=== PATIENT | female | born 1940 | race Caucasian/White ===

== ENCOUNTER 2016-11-08 06:50 | Inpatient (IN) | payer MEDICARE, MEDICAID ==
[2016-11-08] MEDS ORDERED: IPRATROPIUM/ALBUTEROL 0.5-2.5 MG/3 ML AMPUL NEB ONE ×2 (07:36)
--- NOTE | 2016-11-08 07:37 | ER Document Report ---
ED General - General Chief Complaint: Breathing Difficulty Stated Complaint: DIFFICULTY BREATHING Mode of Arrival: Ambulatory Information source: Patient Notes: 76-year-old female history of COPD who is not on oxygen at home presents with complaints of shortness of breath over the past few days. Patient denies any fevers or chills Patient notes productive yellow cough TRAVEL OUTSIDE OF THE [place] IN LAST 30 DAYS: No - HPI Onset: Last week Onset/Duration: Persistent Quality of pain: Achy Severity: Mild Pain Level: 1 Associated symptoms: Body/muscle aches, Productive cough, Shortness of breath Exacerbated by: Denies Relieved by: Denies Similar symptoms previously: No Recently seen / treated by doctor: No - Related Data Allergies/Adverse Reactions: naproxen [From Naprosyn] Allergy (Verified 06/25/15 07:33) Past Medical History - Social History Smoking Status: Current Every Day Smoker Cigarette use (# per day): Yes Chew tobacco use (# tins/day): No Smoking Education Provided: Yes - Patient counselled regarding cessation for 4 minutes Frequency of alcohol use: None Drug Abuse: None Family History: Reviewed & Not Pertinent - Past Medical History Cardiac Medical History: Reports: Hx Coronary Artery Disease, Hx Heart Attack - X1, Hx Hypertension Pulmonary Medical History: Reports: Hx COPD - Flovent BID prescript due "lung tests" that doctor conducted, Hx Pneumonia - 12/2011 Denies: Hx Asthma, Hx Bronchitis, Hx Tuberculosis Neurological Medical History: Denies: Hx Cerebrovascular Accident, Hx Seizures Renal/ Medical History: Denies: Hx Peritoneal Dialysis Musculoskeltal Medical History: Reports Hx Arthritis Past Surgical History: Reports: Hx Cardiac Surgery - ablation, Hx Hysterectomy, Hx Tonsillectomy. Denies: Hx Pacemaker - Immunizations Hx Diphtheria, Pertussis, Tetanus Vaccination: No - unknown Hx Pneumococcal Vaccination: 02/11/12 Review of Systems - Review of Systems Notes: REVIEW OF SYSTEMS: CONSTITUTIONAL : Denies fever, chills, or sweats. Denies recent illness. EENT: Denies eye, ear, throat, or mouth pain or symptoms. Denies nasal or sinus congestion or discharge. Denies throat, tongue, or mouth swelling or difficulty swallowing. CARDIOVASCULAR: Denies chest pain. Denies palpitations or racing or irregular heart beat. Denies ankle edema. RESPIRATORY: Admits shortness of breath productive cough GASTROINTESTINAL: Denies abdominal pain or distention. Denies nausea, vomiting , or diarrhea. Denies blood in vomitus, stools, or per rectum. Denies black, tarry stools. Denies constipation. GENITOURINARY: Denies difficulty urinating, painful urination, burning, frequency, blood in urine, or discharge. FEMALE GENITOURINARY: Denies vaginal bleeding, heavy or abnormal periods, irregular periods. Denies vaginal discharge or odor. MUSCULOSKELETAL: Denies back or neck pain or stiffness. Denies joint pain or swelling. SKIN: Denies rash, lesions or sores. HEMATOLOGIC : Denies easy bruising or bleeding. LYMPHATIC: Denies swollen, enlarged glands. NEUROLOGICAL: Denies confusion or altered mental status. Denies passing out or loss of consciousness. Denies dizziness or lightheadedness. Denies headache. Denies weakness or paralysis or loss of use of either side. Denies problems with gait or speech. Denies sensory loss, numbness, or tingling. Denies seizures. PSYCHIATRIC: Denies anxiety or stress. Denies depression, suicidal ideation, or homicidal ideation. ALL OTHER SYSTEMS REVIEWED AND NEGATIVE. Dictation was performed using [employer] voice recognition software PHYSICAL EXAMINATION: GENERAL: Well-appearing, well-nourished and in no acute distress. HEAD: Atraumatic, normocephalic. EYES: Pupils equal round and reactive to light, extraocular movements intact, conjunctiva are normal. ENT: Nares patent, oropharynx clear without exudates. Moist mucous membranes. NECK: Normal range of motion, supple without lymphadenopathy LUNGS: Coarse wheezing all throughout, currently on 4 L nasal cannula satting 92 % HEART: Regular rate and rhythm without murmurs ABDOMEN: Soft, nontender, nondistended abdomen. No guarding, no rebound. No masses appreciated. Female : deferred Musculoskeletal: Normal range of motion, no pitting or edema. No cyanosis. NEUROLOGICAL: Cranial nerves grossly intact. Normal speech, normal gait. Normal sensory, motor exams PSYCH: Normal mood, normal affect. SKIN: Warm, Dry, normal turgor, no rashes or lesions noted. Physical Exam - Vital signs Vitals: Pulse Ox 94 11/08/16 07:09 Course - Re-evaluation Re-evalutation: 11/08/16 07:36 Patient is not on oxygen at home, currently is on 4 L satting 92% at rest, she is already received 3 duo nebs and 125 Solu-Medrol by EMS. Further duo neb has been ordered I will ambulate her afterwards but I expect admission 11/08/16 08:15 Chest x-ray is consistent with pneumonia, patient will be started on antibiotics sepsis laboratory ordered 11/08/16 09:49 Patient ambulated desat to 88%, given that she meet sepsis criteria is hypoxic I will admit her to hospital service for further evaluation and care - Vital Signs Vital signs: Temp Pulse Resp BP Pulse Ox 24 H 107/55 L 96 11/08/16 08:56 11/08/16 08:56 11/08/16 08:56 - Laboratory Result Diagrams: 11/08/16 07:51 11/08/16 07:51 Laboratory results interpreted by me: 11/08/16 11/08/16 11/08/16 07:51 07:51 08:32 WBC 15.6 H Seg Neutrophils % 86.1 H Lymphocytes % 9.7 L Absolute Neutrophils 13.5 H VBG pH 7.43 H Glucose 123 H - Diagnostic Test Radiology reviewed: Image reviewed, Reports reviewed Critical Care Note - Critical Care Note Total time excluding time spent on procedures (mins): 37 Comments: minutes of critical care time spent in direct contact evaluating and reevaluating the patient, treating symptoms, reviewing labs and studies and speaking with family and consultants excluding any procedures Discharge - Discharge Clinical Impression: Pneumonia Qualifiers: Pneumonia type: due to unspecified organism Laterality: left Lung location: lower lobe of lung Qualified Code(s): J18.1 - Lobar pneumonia, unspecified organism Sepsis Qualifiers: Sepsis type: sepsis due to unspecified organism Qualified Code(s): A41.9 - Sepsis, unspecified organism Condition: Stable Disposition: ADMITTED INPATIENT Admitting Provider: Hospitalist Unit Admitted: Telemetry
[2016-11-08 08:05] LABS: ABSOLUTE LYMPHOCYTES (AUTO) 1.5 10^3/uL (0.5-4.7); ABSOLUTE MONOCYTES (AUTO) 0.6 10^3/uL (0.1-1.4); ABSOLUTE NEUT (AUTO) 13.5 10^3/uL (1.7-8.2); BASOPHILS % (AUTO) 0.2 % (0-2); EOSINOPHILS % (AUTO) 0.1 % (0-6); LYMPHOCYTES % (AUTO) 9.7 % (13-45); MEAN CORPUSCULAR HEMOGLOBIN 32.2 pg (27.0-33.4); MEAN CORPUSCULAR HGB CONC 34.8 g/dL (32.0-36.0); MEAN CORPUSCULAR VOLUME 93 fl (80-97); MONOCYTES % (AUTO) 3.9 % (3-13); RED BLOOD COUNT 4.65 10^6/uL (3.72-5.28); RED CELL DISTRIBUTION WIDTH 13.5 % (11.5-14.0); SEGMENTED NEUTROPHILS % (AUTO) 86.1 % (42-78); WHITE BLOOD COUNT 15.6 10^3/uL (4.0-10.5)
[2016-11-08] MEDS ORDERED: LEVOFLOXACIN 750 MG/D5W RTU 150 ML IV ONE (08:06)
--- NOTE | 2016-11-08 08:24 | EKG REPORT ---
SEVERITY:- ABNORMAL ECG - SINUS RHYTHM ATRIAL PREMATURE COMPLEX LEFT ANTERIOR FASCICULAR BLOCK LVH WITH SECONDARY REPOLARIZATION ABNORMALITY ANTERIOR INFARCT, AGE INDETERMINATE BORDERLINE PROLONGED QT INTERVAL : Confirmed by: Isacc Fishman 08-Nov-2016 08:23:33
[2016-11-08 08:27] LABS: ALANINE AMINOTRANSFERASE 26 U/L (9-52); ALKALINE PHOSPHATASE 120 U/L (38-126); ANION GAP 12 (5-19); ASPARTATE AMINO TRANSFERASE 18 U/L (14-36); BILIRUBIN,TOTAL 0.7 mg/dL (0.2-1.3); BLOOD UREA NITROGEN 13 mg/dL (7-20); CALCIUM 9.9 mg/dL (8.4-10.2); CARBON DIOXIDE 24 mmol/L (22-30); CHLORIDE 105 mmol/L (98-107); CREATINE KINASE 39 U/L (30-135); CREATININE RESULT 0.68 mg/dL (0.52-1.25); GLUCOSE 123 mg/dL (75-110); SODIUM 140.5 mmol/L (137-145); TOTAL PROTEIN 7.2 g/dL (6.3-8.2)
[2016-11-08 08:41] LABS: CREATINE KINASE MB 0.53 ng/mL (<4.55)
[2016-11-08 08:43] LABS: TROPONIN I < 0.012 ng/mL
[2016-11-08 08:45] LABS: VENOUS BLOOD BASE EXCESS 0.1 mmol/L; VENOUS BLOOD HCO3 24.1 mmol/L (20-32); VENOUS BLOOD PCO2 37.1 mmHg (35-63); VENOUS BLOOD PH 7.43 (7.30-7.42)
[2016-11-08 12:09] LABS: APPEARANCE,URINE CLOUDY; BILIRUBIN,URINE NEGATIVE (NEGATIVE); CALCIUM OXALATE CRYSTALS,URINE MANY /HPF; GLUCOSE, URINE NEGATIVE (NEGATIVE); KETONES,URINE NEGATIVE (NEGATIVE); LEUKOCYTE ESTERASE,URINE TRACE (NEGATIVE); NITRITE,URINE NEGATIVE (NEGATIVE); PROTEIN,URINE NEGATIVE (NEGATIVE); URINE SPECIFIC GRAVITY 1.016; UROBILINOGEN,URINE NEGATIVE mg/dL (<2.0)
[2016-11-08] MEDS ORDERED: ACETAMINOPHEN 325 MG TABLET PO PRN (12:43)
[2016-11-08] MEDS ORDERED: NORMAL SALINE 1000 ML 1,000 ML IV PRN (12:43)
[2016-11-08] MEDS ORDERED: ALBUTEROL SULFATE 0.083% NEB 2.5 MG/3 ML AMPUL NEB PRN (12:43)
--- NOTE | 2016-11-08 13:00 | PDOC H&P ---
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 Grand child is sick with an upper respiratory tract infection and possibly pneumonia recently. 2 days ago the patient started to develop cough with associated wheezing and eventual shortness of breath. There is associated mild pleurisy. There is no nausea or vomiting. Feels chilly at times but no definite fever. Feels sweaty at times as well. No sore throat nor sinus congestion. No PND or orthopnea nor increasing edema on the lower extremity. The patient went to the emergency room. Patient was given bronchodilators and a chest x-ray revealed left lower lobe infiltrate patient was then referred for admission. Past Medical History Past Medical History: Medication reconciliation pending verification from the patient's pharmacist. Cardiac Medical History: Reports: Coronary Artery Disease, Myocardial Infarction - X1, Hypertension, Other - WPW Pulmonary Medical History: Reports: Chronic Obstructive Pulmonary Disease (COPD ) - Flovent BID prescript due "lung tests" that doctor conducted, Pneumonia - 2011 Denies: Asthma, Bronchitis, Tuberculosis Neurological Medical History: Denies: Seizures Musculoskeltal Medical History: Reports: Arthritis Hematology: Denies: Anemia Past Surgical History Past Surgical History: Reports: Hysterectomy, Tonsillectomy, Other - Electrophysiologic studies with Ablation, excision of skin cancer Denies: Pacemaker Social History Information Source: Patient Smoking Status: Current Every Day Smoker Frequency of Alcohol Use: None Hx Recreational Drug Use: No Drugs: None Hx Prescription Drug Abuse: No Family History Family History: Malignancy - Lymphoma, Other - Heart disease Parental Family History Reviewed: Yes Children Family History Reviewed: Yes Sibling(s) Family History Reviewed.: Yes Medication/Allergy Allergies/Adverse Reactions: naproxen [From Naprosyn] Allergy (Verified 06/25/15 07:33) Review of Systems Constitutional: PRESENT: chills. ABSENT: fever(s), headache(s), weakness, weight gain, weight loss Eyes: ABSENT: visual disturbances Ears: ABSENT: hearing changes Nose, Mouth, and Throat: ABSENT: headache(s), mouth pain, sore throat Cardiovascular: PRESENT: chest pain - Pleuritic, dyspnea on exertion. ABSENT: edema, orthropnea, palpitations Respiratory: PRESENT: cough, dyspnea. ABSENT: hemoptysis, sputum Gastrointestinal: ABSENT: abdominal pain, bloating, constipation, diarrhea, hematemesis, hematochezia, melena, nausea, vomiting Genitourinary: ABSENT: difficulty urinating, dysuria, hematuria Musculoskeletal: ABSENT: joint swelling Integumentary: ABSENT: pruritus, rash, wounds Neurological: ABSENT: abnormal gait, abnormal speech, confusion, dizziness, focal weakness, syncope Psychiatric: ABSENT: anxiety, depression, homidical ideation, suicidal ideation Endocrine: ABSENT: cold intolerance, heat intolerance, polydipsia, polyuria Hematologic/Lymphatic: ABSENT: easy bleeding, easy bruising Physical Exam Vital Signs: Temp Pulse Resp BP Pulse Ox 98.3 F 24 H 113/60 94 11/08/16 12:06 11/08/16 11:01 11/08/16 11:00 11/08/16 11:01 General appearance: PRESENT: no acute distress, cooperative, well-developed, well-nourished Head exam: PRESENT: atraumatic, normocephalic Eye exam: PRESENT: conjunctiva pink, EOMI, PERRLA. ABSENT: scleral icterus Ear exam: PRESENT: normal external ear exam. ABSENT: drainage Mouth exam: PRESENT: moist, neck supple, tongue midline Neck exam: ABSENT: carotid bruit, JVD, lymphadenopathy, thyromegaly Respiratory exam: PRESENT: rhonchi - Occasional bilateral, unlabored, wheezes - Mild posteriorly bilateral. ABSENT: rales, retraction Cardiovascular exam: PRESENT: RRR. ABSENT: diastolic murmur, rubs, systolic murmur Pulses: PRESENT: normal dorsalis pedis pul Vascular exam: PRESENT: normal capillary refill GI/Abdominal exam: PRESENT: normal bowel sounds, soft. ABSENT: distended, guarding, mass, organolmegaly, rebound, tenderness Rectal exam: PRESENT: deferred Extremities exam: PRESENT: full ROM. ABSENT: calf tenderness, clubbing, pedal edema Neurological exam: PRESENT: alert, awake, oriented to person, oriented to place , oriented to time, oriented to situation Psychiatric exam: PRESENT: appropriate affect, normal mood. ABSENT: homicidal ideation, suicidal ideation Skin exam: PRESENT: dry, intact, warm. ABSENT: cyanosis, rash Results Laboratory Results: 11/08/16 11:30 Urine Color YELLOW Urine Appearance CLOUDY Urine pH 5.0 Ur Specific [place] 1.016 Urine Protein NEGATIVE Urine Glucose (UA) NEGATIVE Urine Ketones NEGATIVE Urine Blood NEGATIVE Urine Nitrite NEGATIVE Ur Leukocyte Esterase TRACE H Urine WBC (Auto) 2 Urine RBC (Auto) 1 Impressions: Chest X-Ray 11/08/16 07:09 IMPRESSION: Atelectasis or early pneumonia left lower lobe. Assessment & Plan - Diagnosis (1) Pneumonia Qualifiers: Pneumonia type: due to unspecified organism Laterality: left Lung location: lower lobe of lung Qualified Code(s): J18.1 - Lobar pneumonia, unspecified organism Is this a current diagnosis for this admission?: Yes (2) COPD exacerbation Is this a current diagnosis for this admission?: Yes (3) Hyperglycemia Is this a current diagnosis for this admission?: Yes (4) Essential hypertension Is this a current diagnosis for this admission?: Yes (5) Coronary artery disease Qualifiers: Coronary Disease-Associated Artery/Lesion type: [place] artery [place] vs. transplanted heart: [place] heart Associated angina: without angina Qualified Code(s): I25.10 - Atherosclerotic heart disease of [place] coronary artery without angina pectoris Is this a current diagnosis for this admission?: Yes (6) Osteoarthritis Qualifiers: Osteoarthritis location: unspecified site Osteoarthritis type: unspecified Qualified Code(s): M19.90 - Unspecified osteoarthritis, unspecified site Is this a current diagnosis for this admission?: Yes (7) History of Mjhhc-Coomdwwme-Lmvqp (WPW) syndrome Is this a current diagnosis for this admission?: Yes - Time Time Spent: 50 to 70 Minutes Anticipated discharge: Home with Homehealth Within: within 72 hours - Plan Summary Plan Summary: The patient will be admitted to telemetry. We will follow the pneumonia pathway. I will begin the patient on intravenous Levaquin. We will culture the sputum and blood. Supplemental oxygen will be given. DVT prophylaxis will be placed. Mucolytic as well as antipyretics as needed will be placed. I will obtain a hemoglobin A1c. I will begin intravenous steroids and around-the- clock nebulizers. Further testing depends on the initial evaluation and response to treatment as outlined above.
[2016-11-08] MEDS ORDERED: METHYLPREDNISOLONE INJ 125 MG/2 ML SDV IV ONE (13:15)
[2016-11-08] MEDS: IPRATROPIUM/ALBUTEROL 0.5-2.5 MG/3 ML AMPUL NEB SCH ×2 (16:06→20:07)
[2016-11-08] MEDS: METHYLPREDNISOLONE INJ 125 MG/2 ML SDV IV SCH ×2 (18:55→23:14)
[2016-11-08] MEDS: GUAIFENESIN 600 MG TABLET.SA PO SCH (23:14)
[2016-11-09] MEDS: IPRATROPIUM/ALBUTEROL 0.5-2.5 MG/3 ML AMPUL NEB SCH ×4 (00:07→11:56)
[2016-11-09] MEDS: METHYLPREDNISOLONE INJ 125 MG/2 ML SDV IV SCH (05:01)
[2016-11-09 05:50] LABS: HEMATOCRIT 42.2 % (36.0-47.0); HEMOGLOBIN 14.6 g/dL (12.0-15.5); HGB HCT DIFFERENCE 1.6; MEAN CORPUSCULAR HEMOGLOBIN 32.3 pg (27.0-33.4); MEAN CORPUSCULAR HGB CONC 34.7 g/dL (32.0-36.0); MEAN CORPUSCULAR VOLUME 93 fl (80-97); RED BLOOD COUNT 4.53 10^6/uL (3.72-5.28); RED CELL DISTRIBUTION WIDTH 13.5 % (11.5-14.0); WHITE BLOOD COUNT 23.6 10^3/uL (4.0-10.5)
[2016-11-09] MEDS ORDERED: LANSOPRAZOLE 30 MG TAB.RAP.DR PO SCH (06:00)
[2016-11-09 06:09] LABS: ANION GAP 11 (5-19); BLOOD UREA NITROGEN 13 mg/dL (7-20); CALCIUM 10.3 mg/dL (8.4-10.2); CARBON DIOXIDE 24 mmol/L (22-30); CHLORIDE 107 mmol/L (98-107); GLUCOSE 136 mg/dL (75-110); SODIUM 141.5 mmol/L (137-145)
[2016-11-09 06:35] LABS: BAND NEUTROPHILS % (MANUAL) 1 % (3-5); BASOPHILS % (MANUAL) 0 % (0-2); EOSINOPHILS % (MANUAL) 0 % (0-6); LYMPHOCYTES % (MANUAL) 8 % (13-45); TOTAL CELLS COUNTED 100
[2016-11-09 06:36] LABS: OVALOCYTES SLIGHT; POIKILOCYTOSIS SLIGHT; TOXIC GRANULATION 1+
[2016-11-09] MEDS ORDERED: ASPIRIN 81 MG TABLET, ENT COATED PO SCH ×2 (08:00)
[2016-11-09] MEDS ORDERED: DILTIAZEM HCL 180 MG CAPSULE.CR PO SCH ×2 (08:00)
[2016-11-09] MEDS ORDERED: ISOSORBIDE MONONITRATE 30 MG TAB.ER.24H PO SCH ×2 (08:00)
[2016-11-09] MEDS ORDERED: UMECLIDINIUM BROMIDE PO SCH ×2 (08:00)
[2016-11-09] MEDS ORDERED: B12 PO SCH ×2 (08:00)
[2016-11-09] MEDS ORDERED: B6 PO SCH ×2 (08:00)
[2016-11-09] MEDS ORDERED: LEVOMEFOLATE CALCIUM PO SCH ×2 (08:00)
[2016-11-09] MEDS ORDERED: ENOXAPARIN SODIUM INJ 40 MG/0.4 ML DISP.SYRIN SUBCUT SCH (08:00)
[2016-11-09 09:39] VITALS: BP 120/41
[2016-11-09] MEDS: GUAIFENESIN 600 MG TABLET.SA PO SCH (09:49)
[2016-11-09] MEDS ORDERED: COLESEVELAM HCL 625 MG TABLET PO SCH (10:00)
[2016-11-09] MEDS ORDERED: LEVOFLOXACIN 750 MG/D5W RTU 150 ML IV SCH (10:00)
[2016-11-09] MEDS ORDERED: NORMAL SALINE 1000 ML 1,000 ML IV PRN (11:40)
--- NOTE | 2016-11-09 12:22 | PDOC DISCHARGE SUMMARY ---
General - Admit/Disc Date/PCP Admission Date/Primary Care Provider: 11/08/16 12:44 YANET HENDRIX Discharge Date: 11/09/16 - Discharge Diagnosis (1) Pneumonia Is this a current diagnosis for this admission?: Yes (2) COPD exacerbation Is this a current diagnosis for this admission?: Yes (3) Hyperglycemia Is this a current diagnosis for this admission?: Yes (4) Essential hypertension Is this a current diagnosis for this admission?: Yes (5) Coronary artery disease Is this a current diagnosis for this admission?: Yes (6) Osteoarthritis Is this a current diagnosis for this admission?: Yes (7) History of Ojvkb-Guwuzizjk-Smmrn (WPW) syndrome Is this a current diagnosis for this admission?: Yes - Additional Information Home Medications: Aspirin [Adult Low Dose Aspirin EC] 1 tab PO QAM 11/08/16 B12/Levomefolate Calcium/B-6 [Foltx Tablet] 1 tab PO QAM 11/08/16 Budesonide/Formoterol Fumarate [Symbicort HFA 160-4.5 mcg Inhaler 6 gm] 2 inh PO BID 11/08/16 Colesevelam HCl [Welchol 625 mg Tablet] 1 tab PO BID 11/08/16 Diltiazem HCl [Cardizem Cd 180 mg Capsule] 1 cap PO QAM 11/08/16 Isosorbide Mononitrate [Imdur 30 mg Tablet.er] 0.5 tab PO QAM 11/08/16 Multivits W-Min/Ferrous Gluc [Centrum Multivit-Mineral Liq] 1 tab PO QAM Umeclidinium [place] [Incruse Ellipta] 1 inh PO QAM 11/08/16 Vitamin D3/Vitamin K2 [D3 + K2 Dots 1,000 Units Tab] 1 tab PO QAM 11/08/16 Albuterol Sulfate [Ventolin 0.083% Neb 2.5 mg/3 mL Ampul] 2.5 mg NEB Q4H PRN # 80 vial.neb 11/09/16 Ipratropium/Albuterol Sulfate [Duoneb 3 ml Ampul] 3 ml NEB RTQ4 #120 vial.neb Levofloxacin [Levaquin 750 mg Tablet] 750 mg PO DAILY #10 tab 11/09/16 Prednisone [Sterapred Ds] 1 pkg PO ASDIR PRN 12 Days 11/09/16 Additional Information: Return to ER if symptoms got worse. Patient advised to see primary care physician as soon as possible. Patient advised for bedrest for at least 5 days. Patient encouraged to increase oral fluids. 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 Grand child is sick with an upper respiratory tract infection and possibly pneumonia recently. 2 days ago the patient started to develop cough with associated wheezing and eventual shortness of breath. There is associated mild pleurisy. There is no nausea or vomiting. Feels chilly at times but no definite fever. Feels sweaty at times as well. No sore throat nor sinus congestion. No PND or orthopnea nor increasing edema on the lower extremity. The patient went to the emergency room. Patient was given bronchodilators and a chest x-ray revealed left lower lobe infiltrate patient was then referred for admission. Hospital Course Hospital Course: The patient was admitted to telemetry. Intravenous antibiotic, steroids, and intravenous hydration was given. The patient significantly improved the following day. She has not worn her oxygen while in the [facility]. However the patient does not want to stay in the hospital any longer and wants to continue treatment at home on an outpatient basis. Despite encouragement to stay for degenerative day or 2, the patient is decided to leave the hospital. She signed out AGAINST MEDICAL ADVICE. She was advised to see primary care physician in one to 2 days, rest and recover at home, and return to the emergency room if symptoms get worse. Physical Exam Vital Signs: Temp Pulse Resp BP Pulse Ox 97.9 F 98 24 H 120/41 L 92 11/09/16 09:10 11/09/16 09:10 11/09/16 09:10 11/09/16 09:10 11/09/16 09:10 Intake & Output 11/08/16 11/09/16 11/10/16 06:59 06:59 06:59 Intake Total 1713 Output Total 4 Balance 1709 Weight 72.6 kg General appearance: PRESENT: no acute distress, cooperative, other - Patient speaks in complete sentences with minimal interruption Head exam: PRESENT: normocephalic Eye exam: PRESENT: EOMI Mouth exam: PRESENT: moist, neck supple Neck exam: ABSENT: JVD Respiratory exam: PRESENT: wheezes - Minimal and mild, other - Air entry is fair. Cardiovascular exam: PRESENT: RRR. ABSENT: gallop GI/Abdominal exam: PRESENT: soft. ABSENT: distended, tenderness Extremities exam: ABSENT: pedal edema Neurological exam: PRESENT: alert, awake, oriented to person, oriented to place , oriented to time, oriented to situation Skin exam: PRESENT: dry, warm. ABSENT: cyanosis Results Laboratory Results: 11/09/16 05:01 11/09/16 05:01 11/09/16 11/09/16 05:01 05:01 WBC 23.6 H RBC 4.53 Hgb 14.6 Hct 42.2 MCV 93 MCH 32.3 MCHC 34.7 RDW 13.5 Plt Count 412 Seg Neutrophils % Not Reportable Lymphocytes % Not Reportable Monocytes % Not Reportable Eosinophils % Not Reportable Basophils % Not Reportable Absolute Neutrophils Not Reportable Absolute Lymphocytes Not Reportable Absolute Monocytes Not Reportable Absolute Eosinophils Not Reportable Absolute Basophils Not Reportable Sodium 141.5 Potassium 4.0 Chloride 107 Carbon Dioxide 24 Anion Gap 11 BUN 13 Creatinine 0.60 Est GFR ( Amer) > 60 Est GFR (Non-Af Amer) > 60 Glucose 136 H Calcium 10.3 H Impressions: Chest X-Ray 11/08/16 07:09 IMPRESSION: Atelectasis or early pneumonia left lower lobe. Qualifiers PATEINT BEING DISCHARGED WITH ANY OF THE FOLLOWING DIAGNOSIS?: No Plan Discharge Plan: Patient left AGAINST MEDICAL ADVICE. Advised to see primary care physician in one to 2 days. Patient given prescriptions for Levaquin, DuoNeb nebulizer, albuterol nebulizer, steroid pack, nebulizer machine.
[2016-11-09] MEDS ORDERED: PREDNISONE 20 MG TABLET PO ONE (12:30)
== END 2016-11-09 12:40 | disposition left against medical advice (07) | DRG 194 ==
LOC: ER 06:50 → UNDOADMIN 10:13 → EH 10:13 → 4N 13:09 → EH 13:09
PROVIDERS: ADMIT Family Medicine; ATTEND Family Medicine
DX: J18.1 Lobar pneumonia, unspecified organism (principal); J44.1 Chronic obstructive pulmonary disease with (acute) exacerbation; I25.10 Atherosclerotic heart disease of native coronary artery without angina pectoris; I10 Essential (primary) hypertension; R73.9 Hyperglycemia, unspecified; M19.90 Unspecified osteoarthritis, unspecified site; I45.6 Pre-excitation syndrome; F17.210 Nicotine dependence, cigarettes, uncomplicated; I25.2 Old myocardial infarction; Z71.6 Tobacco abuse counseling
CPT/HCPCS: 36415; 71010; 80048; 80053; 81001; 82550; 82553; 82803; 83036; 83605; 83880; 84484; 85025; 87040; 87070; 87205; 93005; 93010; 94640; 96365; 99291; J1650; J1956; J2930; J3490; J7030; J7512; J7620

== ENCOUNTER → 2016-12-09 | Outpatient (CLI) | payer MEDICARE, MEDICAID | LOC: OD 09:13 | PROVIDERS: ATTEND Nurse Practitioner | DX: J18.9 Pneumonia, unspecified organism (principal) | CPT/HCPCS: 71020 ==

== ENCOUNTER → 2017-06-02 | Outpatient (CLI) | payer MEDICARE, MEDICAID ==
--- NOTE | 2017-06-02 10:19 | RADIOLOGY REPORT (SQ) ---
EXAM DESCRIPTION: U/S RETROPERITON (RENAL/AORTA) COMPLETED DATE/TIME: 06/02/2017 9:14 am REASON FOR STUDY: HEMATURIA R31.9 HEMATURIA, UNSPECIFIED COMPARISON: None available TECHNIQUE: Dynamic and static grayscale images acquired of the kidneys and bladder and recorded on P ACS. Additional selected color Doppler and spectral images recorded. LIMITATIONS: None. FINDINGS: RIGHT KIDNEY: 9 cm in length. Normal echogenicity. No solid or suspicious masses. No calc ifications. There is mild right hydronephrosis with renal pelvis, calyx, and proximal ureteral dilatation. This is seen on both the prevoid and postvoid images LEFT KIDNEY: 9.6 cm in length. Normal echogenicity. No solid or suspicious masses. No hydronephrosis . No calcifications. BLADDER: No masses. Bilateral ureteral jets are identified OTHER FINDINGS: No other significant finding. IMPRESSION: Mild right hydronephrosis and hydroureter. Question right ureteral stricture or stone. No left hydronephrosis. No right or left intrarenal stones identified at ultrasound TECHNICAL DOCUMENTATION: JOB ID: [id number] All Rights Reserved
== END ==
LOC: RAD 08:32
PROVIDERS: ATTEND Nurse Practitioner
DX: R31.9 Hematuria, unspecified (principal); N13.30 Unspecified hydronephrosis
CPT/HCPCS: 76770

== ENCOUNTER 2018-05-26 21:25 | Inpatient (IN) | payer MEDICARE, MEDICAID ==
[2018-05-26 22:04] LABS: ABSOLUTE EOSINOPHILS # (AUTO) 0.1 10^3/uL (0.0-0.6); ABSOLUTE LYMPHOCYTES (AUTO) 1.4 10^3/uL (0.5-4.7); ABSOLUTE MONOCYTES (AUTO) 1.7 10^3/uL (0.1-1.4); ABSOLUTE NEUT (AUTO) 9.5 10^3/uL (1.7-8.2); BASOPHILS % (AUTO) 0.2 % (0-2); EOSINOPHILS % (AUTO) 0.4 % (0-6); HEMATOCRIT 38.7 % (36.0-47.0); HEMOGLOBIN 13.5 g/dL (12.0-15.5); LYMPHOCYTES % (AUTO) 11.2 % (13-45); MEAN CORPUSCULAR HEMOGLOBIN 32.9 pg (27.0-33.4); MEAN CORPUSCULAR HGB CONC 34.9 g/dL (32.0-36.0); MEAN CORPUSCULAR VOLUME 94 fl (80-97); MONOCYTES % (AUTO) 13.6 % (3-13); PLATELET COUNT 582 10^3/uL (150-450); RED BLOOD COUNT 4.11 10^6/uL (3.72-5.28); RED CELL DISTRIBUTION WIDTH 13.7 % (11.5-14.0); SEGMENTED NEUTROPHILS % (AUTO) 74.6 % (42-78); TOTAL CELLS COUNTED % (AUTO) 100 %; WHITE BLOOD COUNT 12.7 10^3/uL (4.0-10.5)
[2018-05-26 22:22] LABS: ALANINE AMINOTRANSFERASE 34 U/L (9-52); ALBUMIN 3.7 g/dL (3.5-5.0); ALKALINE PHOSPHATASE 83 U/L (38-126); ANION GAP 11 (5-19); ASPARTATE AMINO TRANSFERASE 18 U/L (14-36); BILIRUBIN,DIRECT 0.4 mg/dL (0.0-0.4); BILIRUBIN,TOTAL 0.8 mg/dL (0.2-1.3); BLOOD UREA NITROGEN 16 mg/dL (7-20); CALCIUM 9.3 mg/dL (8.4-10.2); CARBON DIOXIDE 32 mmol/L (22-30); CHLORIDE 95 mmol/L (98-107); GLUCOSE 109 mg/dL (75-110); LIPASE 35.6 U/L (23-300); POTASSIUM 3.2 mmol/L (3.6-5.0); SODIUM 138.2 mmol/L (137-145); TOTAL PROTEIN 6.2 g/dL (6.3-8.2)
[2018-05-26] MEDS ORDERED: NORMAL SALINE 1000 ML 1,000 ML IV ONE (22:52)
[2018-05-26] MEDS ORDERED: ONDANSETRON HCL INJ/PF 4 MG/2 ML SDV IV ONE (22:52)
--- NOTE | 2018-05-26 22:56 | ER Document Report ---
ED General - General Chief Complaint: Nausea/Vomiting/Diarrhea Stated Complaint: N/V/D Time Seen by Provider: 05/26/18 21:30 Notes: Patient is a 78-year-old female with a past medical history of hypertension, recently hospitalized [facility] for concerns of a small bowel obstruction who presents with ongoing diarrhea and vomiting. The patient states that she has had continuous diarrhea for the past 2 weeks including during the entirety of her hospitalization [facility]. She states she was continued to have diarrhea at the time of discharge. She states that her vomiting restarted today which is what prompted her to come in to the emergency department. She notes that she has been completely unable to tolerate oral intake since onset of the vomiting. She notes that she has some generalized abdominal soreness but denies any focal abdominal pain. She denies a history of abdominal surgeries in the past. She has not yet followed up with her primary care doctor. No recent antibiotic use. She has not had fever at home but does note that she feels very fatigued and has diffuse body aches. Nothing improves or worsens her symptoms. She denies a history of similar symptoms in the past. TRAVEL OUTSIDE OF THE [place] IN LAST 30 DAYS: No - Related Data Allergies/Adverse Reactions: naproxen [From Naprosyn] Allergy (Verified 06/25/15 07:33) Past Medical History - General Information source: Patient - Social History Smoking Status: Former Smoker Frequency of alcohol use: None Drug Abuse: None Lives with: Family Family History: Malignancy - Lymphoma, Other - Heart disease Patient has suicidal ideation: No Patient has homicidal ideation: No - Past Medical History Cardiac Medical History: Reports: Hx Coronary Artery Disease, Hx Heart Attack - X1, Hx Hypertension Pulmonary Medical History: Reports: Hx COPD - Flovent BID prescript due "lung tests" that doctor conducted, Hx Pneumonia - 12/2011 Denies: Hx Asthma, Hx Bronchitis, Hx Tuberculosis Neurological Medical History: Denies: Hx Cerebrovascular Accident, Hx Seizures Renal/ Medical History: Denies: Hx Peritoneal Dialysis Musculoskeletal Medical History: Reports Hx Arthritis Past Surgical History: Reports: Hx Cardiac Surgery - ablation, Hx Hysterectomy, Hx Tonsillectomy, Other - Electrophysiologic studies with Ablation, excision of skin cancer. Denies: Hx Pacemaker - Immunizations Hx Diphtheria, Pertussis, Tetanus Vaccination: No - unknown Hx Pneumococcal Vaccination: 02/11/12 Review of Systems - Review of Systems Notes: Constitutional: Negative for fever. HENT: Negative for sore throat. Eyes: Negative for visual changes. Cardiovascular: Negative for chest pain. Respiratory: Negative for shortness of breath. Gastrointestinal: Positive for abdominal cramping, vomiting and diarrhea Genitourinary: Negative for dysuria. Musculoskeletal: Negative for back pain. Skin: Negative for rash. Neurological: Negative for headaches, weakness or numbness. 10 point ROS negative except as marked above and in HPI. Physical Exam - Vital signs Vitals: Resp 27 H 05/26/18 21:47 Interpretation: Tachycardic Notes: PHYSICAL EXAMINATION: GENERAL: Appears moderately ill but in no acute distress HEAD: Atraumatic, normocephalic. EYES: Pupils equal round and reactive to light, extraocular movements intact, sclera anicteric, conjunctiva are normal. ENT: nares patent, oropharynx clear without exudates. Dry mucous membranes. NECK: Normal range of motion, supple without lymphadenopathy LUNGS: Breath sounds clear to auscultation bilaterally and equal. No wheezes rales or rhonchi. HEART: Regular rate and rhythm without murmurs ABDOMEN: Soft, no focal abdominal tenderness, normoactive bowel sounds. No guarding, no rebound. No masses appreciated. EXTREMITIES: Normal range of motion, no pitting or edema. No cyanosis. NEUROLOGICAL: No focal neurological deficits. Moves all extremities spontaneously and on command. PSYCH: Normal mood, normal affect. SKIN: Warm, Dry, normal turgor, no rashes or lesions noted. Course - Re-evaluation Re-evalutation: 05/26/18 22:55 Patient presents with 2 weeks of intermittent vomiting and diarrhea. She was hospitalized at [facility] earlier this month, diagnosed with a small bowel obstruction that was managed nonsurgically. She states that her vomiting resolved but that she has continued to have diarrhea that has gotten progressively worse. She returns today because the vomiting has resumed. On examination the patient appears somewhat dehydrated, abdomen is somewhat distended on exam. She has no focal abdominal tenderness. Bowel sounds are present. She has not had any recent antibiotic usage to raise concern of C. difficile colitis although will test to definitively exclude. Will proceed with labs, stool testing and reassess. 05/27/18 00:26 C. difficile testing is positive. Patient does persist with ongoing diarrhea although continues without abdominal pain. Vomiting has resolved after IV Zofran. Given her advanced age and the persistence of her symptoms will discuss with the hospitalist for admission. - Vital Signs Vital signs: Temp Pulse Resp BP Pulse Ox 99.0 F 30 H 143/119 H 92 05/26/18 22:05 05/26/18 23:24 05/26/18 23:24 05/26/18 23:24 - Laboratory Result Diagrams: 05/26/18 21:50 05/26/18 21:50 Laboratory results interpreted by me: 05/26/18 05/26/18 21:50 21:50 WBC 12.7 H Plt Count 582 H Lymphocytes % 11.2 L Monocytes % 13.6 H Absolute Neutrophils 9.5 H Absolute Monocytes 1.7 H Potassium 3.2 L Chloride 95 L Carbon Dioxide 32 H Total Protein 6.2 L Discharge - Discharge Clinical Impression: C. difficile colitis Nausea & vomiting Qualifiers: Vomiting type: unspecified Vomiting Intractability: non-intractable Qualified Code(s): R11.2 - Nausea with vomiting, unspecified Diarrhea Qualifiers: Diarrhea type: infectious Qualified Code(s): A09 - Infectious gastroenteritis and colitis, unspecified Condition: Fair Disposition: ADMITTED INPATIENT Admitting Provider: Hospitalist Unit Admitted: Medical Floor
[2018-05-27] MEDS ORDERED: VANCOMYCIN HCL INJ 500 MG VIAL PO ONE (00:24)
[2018-05-27] MEDS ORDERED: MAG HYDROX/AL HYDROX/SIMETH SUSP 30 ML UDCUP PO PRN (01:16)
[2018-05-27] MEDS ORDERED: ACETAMINOPHEN 325 MG TABLET PO PRN (01:16)
[2018-05-27] MEDS ORDERED: IPRATROPIUM/ALBUTEROL 0.5-2.5 MG/3 ML AMPUL NEB PRN (01:16)
[2018-05-27] MEDS ORDERED: NORMAL SALINE 1000 ML 1,000 ML IV SCH (01:30)
[2018-05-27] MEDS: POTASSI CL 20 MEQ/50 ML RIDER 20 MEQ/50 ML RTUPB IV SCH ×2 (01:45→04:19)
--- NOTE | 2018-05-27 05:45 | EKG REPORT ---
SEVERITY:- ABNORMAL ECG - SINUS RHYTHM LAFB [facility] CONSIDER [facility] NC : Confirmed by: Raudel Valdez MD 27-May-2018 05:44:42
[2018-05-27 06:07] LABS: ANION GAP 12 (5-19); BLOOD UREA NITROGEN 12 mg/dL (7-20); CALCIUM 8.6 mg/dL (8.4-10.2); CARBON DIOXIDE 28 mmol/L (22-30); CHLORIDE 97 mmol/L (98-107); GLUCOSE 84 mg/dL (75-110); POTASSIUM 3.4 mmol/L (3.6-5.0)
[2018-05-27] MEDS ORDERED: VANCOMYCIN HCL INJ 500 MG VIAL ONE (06:11)
[2018-05-27] MEDS: HEPARIN SOD (PORCINE) 5,000 UNIT/ML 1 ML SYRINGE SUBCUT SCH ×3 (06:53→21:48)
[2018-05-27] MEDS: VANCOMYCIN HCL INJ 500 MG VIAL PO SCH ×3 (06:53→18:34)
[2018-05-27] MEDS: DILTIAZEM HCL 180 MG CAPSULE.CR PO SCH (07:57)
[2018-05-27] MEDS: ASPIRIN 81 MG TABLET, ENT COATED PO SCH (07:57)
[2018-05-27] MEDS: ISOSORBIDE MONONITRATE 30 MG TAB.ER.24H PO SCH (07:57)
[2018-05-27] MEDS: COLESEVELAM HCL 625 MG TABLET PO SCH ×2 (10:19→18:34)
[2018-05-27] MEDS: BUDESONIDE/FORMOTEROL 160-4.5 MCG 60 PUFF/6 GM MDI IH SCH ×2 (10:20→18:34)
[2018-05-28] MEDS: VANCOMYCIN HCL INJ 500 MG VIAL PO SCH ×5 (00:52→23:39)
[2018-05-28] MEDS: HEPARIN SOD (PORCINE) 5,000 UNIT/ML 1 ML SYRINGE SUBCUT SCH ×3 (05:53→21:37)
[2018-05-28 06:06] LABS: ABSOLUTE BASOPHILS # (AUTO) 0.1 10^3/uL (0.0-0.2); ABSOLUTE EOSINOPHILS # (AUTO) 0.2 10^3/uL (0.0-0.6); ABSOLUTE LYMPHOCYTES (AUTO) 2.2 10^3/uL (0.5-4.7); ABSOLUTE MONOCYTES (AUTO) 1.9 10^3/uL (0.1-1.4); ABSOLUTE NEUT (AUTO) 10.2 10^3/uL (1.7-8.2); BASOPHILS % (AUTO) 0.3 % (0-2); EOSINOPHILS % (AUTO) 1.1 % (0-6); HEMATOCRIT 37.2 % (36.0-47.0); HEMOGLOBIN 12.8 g/dL (12.0-15.5); MEAN CORPUSCULAR HEMOGLOBIN 32.6 pg (27.0-33.4); MEAN CORPUSCULAR HGB CONC 34.5 g/dL (32.0-36.0); MEAN CORPUSCULAR VOLUME 95 fl (80-97); MONOCYTES % (AUTO) 13.4 % (3-13); PLATELET COUNT 571 10^3/uL (150-450); RED BLOOD COUNT 3.93 10^6/uL (3.72-5.28); RED CELL DISTRIBUTION WIDTH 13.6 % (11.5-14.0); SEGMENTED NEUTROPHILS % (AUTO) 70.2 % (42-78); TOTAL CELLS COUNTED % (AUTO) 100 %; WHITE BLOOD COUNT 14.6 10^3/uL (4.0-10.5)
[2018-05-28 06:22] LABS: ANION GAP 12 (5-19); BLOOD UREA NITROGEN 7 mg/dL (7-20); CALCIUM 8.7 mg/dL (8.4-10.2); CARBON DIOXIDE 28 mmol/L (22-30); CHLORIDE 98 mmol/L (98-107); GLUCOSE 70 mg/dL (75-110); POTASSIUM 3.3 mmol/L (3.6-5.0); SODIUM 138.2 mmol/L (137-145)
[2018-05-28] MEDS ORDERED: POTASSIUM CHLORIDE 10 MEQ CAPSULE.ER PO ONE (08:36)
[2018-05-28] MEDS: DILTIAZEM HCL 180 MG CAPSULE.CR PO SCH (09:33)
[2018-05-28] MEDS: ASPIRIN 81 MG TABLET, ENT COATED PO SCH (09:33)
[2018-05-28] MEDS: ISOSORBIDE MONONITRATE 30 MG TAB.ER.24H PO SCH (09:33)
[2018-05-28] MEDS: COLESEVELAM HCL 625 MG TABLET PO SCH ×2 (09:34→17:25)
[2018-05-28] MEDS: BUDESONIDE/FORMOTEROL 160-4.5 MCG 60 PUFF/6 GM MDI IH SCH ×2 (09:34→17:24)
--- NOTE | 2018-05-28 15:06 | PDOC PROGRESS REPORT ---
Subjective Progress Note for:: 05/28/18 Subjective:: No adverse events overnight. No new complaints. She says that the frequency of her bowel movements as well as the volume her bowel movement has decreased. She said that she feels a little bit better today and her belly does not hurt as bad as it has been recently. She was able to eat a little something today for the first time in a few days. Reason For Visit: C DIFF COLITIS, NAUSEA VOMITING, HYPOKALEMIA Physical Exam Vital Signs: Temp Pulse Resp BP Pulse Ox 97.6 F 77 20 112/56 L 94 05/28/18 12:10 05/28/18 14:00 05/28/18 12:10 05/28/18 12:10 05/28/18 12:10 Intake & Output 05/27/18 05/28/18 05/29/18 06:59 06:59 06:59 Intake Total 1450 266 525 Balance 1450 266 525 Weight 57.1 kg 57.1 kg General appearance: PRESENT: no acute distress, cooperative, disheveled, thin Respiratory exam: PRESENT: clear to auscultation brett, unlabored. ABSENT: accessory muscle use, crackles, rhonchi, wheezes Cardiovascular exam: PRESENT: RRR, +S1, +S2. ABSENT: diastolic murmur, systolic murmur Vascular exam: PRESENT: normal capillary refill GI/Abdominal exam: PRESENT: hyperactive bowel sounds, soft. ABSENT: distended, firm, guarding, rebound, tenderness Extremities exam: PRESENT: full ROM. ABSENT: joint swelling Musculoskeletal exam: PRESENT: ambulatory. ABSENT: deformity Neurological exam: PRESENT: alert, awake, oriented to person, oriented to place , oriented to time, oriented to situation Results Laboratory Results: 05/28/18 04:12 05/28/18 04:12 05/28/18 05/28/18 04:12 04:12 WBC 14.6 H RBC 3.93 Hgb 12.8 Hct 37.2 MCV 95 MCH 32.6 MCHC 34.5 RDW 13.6 Plt Count 571 H Seg Neutrophils % 70.2 Lymphocytes % 15.0 Monocytes % 13.4 H Eosinophils % 1.1 Basophils % 0.3 Absolute Neutrophils 10.2 H Absolute Lymphocytes 2.2 Absolute Monocytes 1.9 H Absolute Eosinophils 0.2 Absolute Basophils 0.1 Sodium 138.2 Potassium 3.3 L Chloride 98 Carbon Dioxide 28 Anion Gap 12 BUN 7 Creatinine 0.54 Est GFR ( Amer) > 60 Est GFR (Non-Af Amer) > 60 Glucose 70 L Calcium 8.7 Magnesium 2.0 Assessment & Plan - Diagnosis (1) C. difficile colitis Is this a current diagnosis for this admission?: Yes Plan: Showing signs of improvement on oral vancomycin. We will continue to watch her fluid and electrolyte status. She is eating and drinking well. We have had to replace some potassium because of her ongoing GI losses and so we will have to keep a close eye on this as well. She said that she was sick for about a month before she came in so chances are she is not going to get better rapidly. - Time Time Spent with patient: 25-34 minutes
[2018-05-29] MEDS: HEPARIN SOD (PORCINE) 5,000 UNIT/ML 1 ML SYRINGE SUBCUT SCH (05:48)
[2018-05-29] MEDS: VANCOMYCIN HCL INJ 500 MG VIAL PO SCH (05:48)
[2018-05-29 06:20] LABS: ABSOLUTE EOSINOPHILS # (AUTO) 0.1 10^3/uL (0.0-0.6); ABSOLUTE LYMPHOCYTES (AUTO) 2.4 10^3/uL (0.5-4.7); ABSOLUTE MONOCYTES (AUTO) 1.3 10^3/uL (0.1-1.4); ABSOLUTE NEUT (AUTO) 8.7 10^3/uL (1.7-8.2); BASOPHILS % (AUTO) 0.2 % (0-2); EOSINOPHILS % (AUTO) 1.1 % (0-6); HEMATOCRIT 39.7 % (36.0-47.0); HEMOGLOBIN 13.6 g/dL (12.0-15.5); MEAN CORPUSCULAR HEMOGLOBIN 32.3 pg (27.0-33.4); MEAN CORPUSCULAR HGB CONC 34.3 g/dL (32.0-36.0); MEAN CORPUSCULAR VOLUME 94 fl (80-97); MONOCYTES % (AUTO) 10.6 % (3-13); PLATELET COUNT 697 10^3/uL (150-450); RED BLOOD COUNT 4.21 10^6/uL (3.72-5.28); RED CELL DISTRIBUTION WIDTH 13.6 % (11.5-14.0); SEGMENTED NEUTROPHILS % (AUTO) 69.1 % (42-78); TOTAL CELLS COUNTED % (AUTO) 100 %; WHITE BLOOD COUNT 12.6 10^3/uL (4.0-10.5)
[2018-05-29 06:40] LABS: ANION GAP 14 (5-19); BLOOD UREA NITROGEN 6 mg/dL (7-20); CALCIUM 9.3 mg/dL (8.4-10.2); CARBON DIOXIDE 27 mmol/L (22-30); CHLORIDE 99 mmol/L (98-107); GLUCOSE 72 mg/dL (75-110); POTASSIUM 3.7 mmol/L (3.6-5.0); SODIUM 139.6 mmol/L (137-145)
[2018-05-29] MEDS: ISOSORBIDE MONONITRATE 30 MG TAB.ER.24H PO SCH (08:45)
[2018-05-29] MEDS: DILTIAZEM HCL 180 MG CAPSULE.CR PO SCH (08:45)
[2018-05-29] MEDS: ASPIRIN 81 MG TABLET, ENT COATED PO SCH (08:45)
[2018-05-29] MEDS: COLESEVELAM HCL 625 MG TABLET PO SCH (11:16)
--- NOTE | 2018-05-29 14:07 | PDOC DISCHARGE SUMMARY ---
General - Admit/Disc Date/PCP Admission Date/Primary Care Provider: 05/27/18 00:54 YANET HENDRIX Discharge Date: 05/29/18 - Discharge Diagnosis (1) C. difficile colitis Is this a current diagnosis for this admission?: Yes - Additional Information Resuscitation Status: Full Code Prescriptions: Vancomycin HCl 125 mg PO Q6H #30 capsule Home Medications: Aspirin [Adult Low Dose Aspirin EC] 81 mg PO DAILY 11/08/16 Budesonide/Formoterol Fumarate [Symbicort HFA 160-4.5 mcg Inhaler 6 gm] 2 inh PO Q12 11/08/16 Colesevelam HCl [Welchol 625 mg Tablet] 625 mg PO Q12 11/08/16 Diltiazem HCl [Cardizem Cd 180 mg Capsule] 180 mg PO QAM 11/08/16 Isosorbide Mononitrate [Imdur 30 mg Tablet.er] 15 mg PO QAM 11/08/16 Umeclidinium [place] [Incruse Ellipta] 1 inh PO QAM 11/08/16 Multivit-Min/Iron/Folic/Lutein [Centrum Silver Women Tablet] 1 each PO DAILY 10/13 Vancomycin HCl 125 mg PO Q6H #30 capsule 05/29/18 History of Present Illness History of Present Illness: PADDY MARISCAL is a 78 year old female who presented with diarrhea and was found to be positive for C. difficile colitis. Hospital Course Hospital Course: This is a 78-year-old female who was admitted for C. difficile colitis. Patient had initial mild leukocytosis upon admission but had normal renal functions. She did develop mild hypokalemia yesterday which was promptly replaced and has since been corrected. Patient was started on oral vancomycin and she continued to improve clinically. This morning, patient requested to go home today. She only had 3 bowel movement so far since last night and these have been well formed. She denies any nausea or vomiting. She denies abdominal pain. She has been tolerating diet well. Her electrolytes and renal functions have been normal. She will be discharged on oral vancomycin to complete a total of 10 days of therapy. Physical Exam Vital Signs: Temp Pulse Resp BP Pulse Ox 97.5 F 68 17 116/52 L 95 05/29/18 11:18 05/29/18 11:18 05/29/18 11:18 05/29/18 11:18 05/29/18 11:18 Intake & Output 05/28/18 05/29/18 05/30/18 06:59 06:59 06:59 Intake Total 266 725 Balance 266 725 Weight 125 lb 14.143 oz 117 lb 8.102 oz General appearance: PRESENT: no acute distress, well-developed, well-nourished Head exam: PRESENT: atraumatic, normocephalic Eye exam: PRESENT: conjunctiva pink, EOMI, PERRLA. ABSENT: scleral icterus Ear exam: PRESENT: normal external ear exam Mouth exam: PRESENT: moist, tongue midline Neck exam: ABSENT: carotid bruit, JVD, lymphadenopathy, thyromegaly Respiratory exam: PRESENT: clear to auscultation brett. ABSENT: rales, rhonchi, wheezes Cardiovascular exam: PRESENT: RRR. ABSENT: diastolic murmur, rubs, systolic murmur Pulses: PRESENT: normal dorsalis pedis pul GI/Abdominal exam: PRESENT: normal bowel sounds, soft. ABSENT: distended, guarding, mass, organolmegaly, rebound, tenderness Rectal exam: PRESENT: deferred Neurological exam: PRESENT: alert, awake, oriented to person, oriented to place , oriented to time, oriented to situation, CN II-XII grossly intact. ABSENT: motor sensory deficit Results Laboratory Results: 05/29/18 04:55 05/29/18 04:55 05/29/18 05/29/18 04:55 04:55 WBC 12.6 H RBC 4.21 Hgb 13.6 Hct 39.7 MCV 94 MCH 32.3 MCHC 34.3 RDW 13.6 Plt Count 697 H Seg Neutrophils % 69.1 Lymphocytes % 19.0 Monocytes % 10.6 Eosinophils % 1.1 Basophils % 0.2 Absolute Neutrophils 8.7 H Absolute Lymphocytes 2.4 Absolute Monocytes 1.3 Absolute Eosinophils 0.1 Absolute Basophils 0.0 Sodium 139.6 Potassium 3.7 Chloride 99 Carbon Dioxide 27 Anion Gap 14 BUN 6 L Creatinine 0.50 L Est GFR ( Amer) > 60 Est GFR (Non-Af Amer) > 60 Glucose 72 L Calcium 9.3 Qualifiers - * PATIENT BEING DISCHARGED WITH ANY OF THE FOLLOWING DIAGNOSIS: No
[2018-05-29 14:41] VITALS: BP 137/65
== END 2018-05-29 15:09 | disposition home or self-care (01) | DRG 373 ==
LOC: ER 21:25 → EH 05-27 00:54 → 4N 05-27 03:25
PROVIDERS: ADMIT Internal Medicine; ATTEND Internal Medicine
DX: A04.72 Enterocolitis due to Clostridium difficile, not specified as recurrent (principal); E87.6 Hypokalemia; Z79.82 Long term (current) use of aspirin; Z79.899 Other long term (current) drug therapy; Z87.891 Personal history of nicotine dependence; Z90.710 Acquired absence of both cervix and uterus
CPT/HCPCS: 36415; 80048; 80053; 83690; 83735; 84484; 85025; 87045; 87205; 87493; 89055; 93005; 93010; 96374; 99285; J1644; J2405; J3370; J3480; J3490; J7030; J7620